=== PATIENT | male | born 1995 | race Caucasian/White ===

== ENCOUNTER 2017-01-05 19:18 | Inpatient (IN) | payer OTHER ==
[~2017-01-05] VITALS: Ht 182.9 cm; Wt 74.8 kg
[~2017-01-05 19:18] MED LIST: LAMICTAL200 MG PO
[2017-01-05] MEDS ORDERED: HIBICLENS118 ML TOP (19:35)
[2017-01-05] MEDS ORDERED: NORCO 5-325 TA1 EACH PO (19:35)
[2017-01-05] MEDS ORDERED: MORPHINE SULFAT10 M1 PO (19:36)
[2017-01-05] MEDS ORDERED: OXYCODONE HCL5 M1 PO (19:37)
[2017-01-05] MEDS ORDERED: ZOFRAN4 MG PO (19:38)
[2017-01-05] MEDS ORDERED: CEFTRIAXONE1 G2 IM (19:39)
[2017-01-05] MEDS ORDERED: BACTRIM DS TAB1 EACH PO (19:42)
--- NOTE | 2017-01-05 23:00 | NUR ---
PATIENT ADMITTED FROM ER VIA [facility], ACC. BY PICK UP. PATIENT AWAKE AND ALERT, DENIES COMPLAINTS EXCEPT FOR PAIN IN SCROTUM AND R THIGH.
--- NOTE | 2017-01-06 01:00 | NUR ---
NO CHANGES IN ASSESSMENT. PATIENT STATES IS HAVING PROBLEMS SLEEPING AND PAIN IS KEEPING HIM AWAKE.
--- NOTE | 2017-01-06 04:00 | NUR ---
PATIENT APPEARED TO BE SLEEPING; AWAKENED EASILY TO VOICE. PATIENT STATES PAIN IS STILL PRESENT BUT A LITTLE BETTER. PATIENT ASKS WHEN WILL THE DOCTOR KNOW IF HE HAS TO GO TO SURGERY; EXPLAINED TO PATIENT DOCTOR WOULD NOT MAKE THE DECISION UNTIL AFTER HE SEES PATIENT TODAY AND COMPLETES AN ASSESSMENT.
--- NOTE | 2017-01-06 05:15 | NUR ---
PATIENT TURNED. GAUZE AND HOT PACK APPLIED TO SCROTUM PER ORDERS; PATIENT COMPLAINS OF INCREASED PAIN WHEN MESSING WITH R THIGH OR SCROTUM; STATES 'BUTT DOESN'T FEEL TOO BAD'.
--- NOTE | 2017-01-06 09:03 | NUR ---
PT REMAINS NPO AT THIS TIME, UP TO THE SIDE OF THE BED FOR PARTICAL LINE CHANGE DUE TO PT C/O BEING WARM AND WET. PT HAD WARM WET PACK TO SCROUM AREA. PT IS ABLE TO MOVE ABOUT THE ROOM WITHOUT ISSUES. SOME BLEEDING NOTED FROM SCROUM AREA WHEN STANDING UP. PT COOPERATIVE WITH HOSPITAL ROUTINE. TWO [facility] OFFICERS REMAIN AT THE BEDSIDE.
--- NOTE | 2017-01-06 10:10 | NUR ---
PT TO DAY SURGERY AT THIS TIME VIA STREACHER WITH BOTH [facility] OFFICERS AND NURSING STAFF. PT BED COMPLETE CHANGED AT THIS TIME AND WIPED DOWN .
--- NOTE | 2017-01-06 10:13 | NUR ---
DR GALEANO INTO SEE PT. PT WILL GO TO THE OR TODAY. CONSENT SIGNED AND ON CHART, H & P ON CHART ALSO. PT GIVEN PRE-SURGICAL WASH AND FRESH GOWN PLACED.
--- NOTE | 2017-01-06 12:12 | NUR ---
PT REMAINS IN THE SURGERY AREA AT THIS TIME. ASSESSMENT AND VS WILL BE DONE WHEN PT RETURNS
--- NOTE | 2017-01-06 12:33 | NUR ---
[facility]
--- NOTE | 2017-01-06 13:25 | NUR ---
PT RECEIVED FROM PACU. BEDSIDE REPORT RECEIVED FROM FISHER DIVING. PT LAUGHING, INAPPROPRIATE. ORIENTED X4. PT TRANSFERED TO BED. DRESSINGS INTACT TO THIGH, SCROTUM AND BUTTOCK, SHADOWING NOTED TO THIGH DRESSING. PT WITH FAULKNER, DRAINING CLEAR YELLOW URINE. PT ON ROOM AIR. ENID AT BEDSIDE.
--- NOTE | 2017-01-06 14:43 | NUR ---
PT RESTING IN BED. EATING LUNCH, TOLERATING WELL, DENIES NAUSEA. IV FLUIDS INFUSING D5LR AT 85. IV ABX INFUSNG. PT DENIES NEEDS AT THIS TIME
--- NOTE | 2017-01-06 15:30 | NUR ---
PT RESTING IN BED. PT ON ROOM AIR. PT STATES HE IS BEGINING TO FEEL PAIN BUT IT IS TOLERABLE AT THIS TIME. IV FLUIDS INFUSING. FAULKNER IN PLACE DRAINING LIGHT YELLOW URINE. PT MORE ALERT/ORIENTED. PT DENIES NEEDS AT THIS TIME.
--- NOTE | 2017-01-06 15:55 | NUR ---
Checked on patient. Patient asked for apple juice went and got it.
[2017-01-06] MEDS ORDERED: MELATONIN3 MG PO (16:20)
[2017-01-06] MEDS ORDERED: HIBICLENS118 ML TOP (16:24)
[2017-01-06] MEDS ORDERED: TRIPLE ANTIBIO1 EACH TOP (16:25)
[2017-01-06] MEDS ORDERED: CLEOCIN HCL150 MG PO ×2 (16:27→16:28)
[2017-01-06] MEDS ORDERED: SINGULAIR10 MG PO (16:30)
[2017-01-06] MEDS ORDERED: VENTOLIN HFA18 GM INH (16:30)
[2017-01-06] MEDS ORDERED: ARNUITY ELLIP100 MCG INH (16:30)
[2017-01-06] MEDS ORDERED: PC TAR177 ML TOP (16:36)
--- NOTE | 2017-01-06 16:38 | NUR ---
MED REC COMPLETE--MAR
--- NOTE | 2017-01-06 16:53 | NUR ---
PT RESTIN IN BED. PT RATING PAIN 5/10, REQUESTING PAIN MEDICATION. PT LUNG SOUNDS CLEAR, ON ROOM AIR, O2 SATS 100%. PT MORE ALERT/ORIENTED, AT BASELINE. PT WITH FAULKNER IN PLACE, DRAINING CLEAR YELLOW URINE. PT BOWEL TONES ACTIVE, TOLERATING REGULAR DIET, DENIES NAUSEA. DRESSING INTACT, SEROSANGUINOUS DRAINAGE TO THIGH, MODERATE AMOUNT, SMALL AMOUTN SEROSANGINOUS DRAINAGE TO SCROTUM, BUTTOCK CDI. SCDS IN PLACE. PT DENIES NEEDS AT THIS TIME.
--- NOTE | 2017-01-06 18:19 | NUR ---
PT RECEIVED FROM PACU. PT ALERT/ORIENTED. PT ON ROOM AIR, O2 SATS 100%. PT TOLERTING REGULAR DIET, BOWEL TONES ACTIVE, DENIES NAUSEA. PT WITH DRESSINGS TO SCROTUM SMALL AMOUNT OF SEROSANGUINOUS DRAINAGE. DRESSING TO R THIGH, MODERATE AMOUNT OF SEROSANGUINOUS DRAINAGE. DRESSING TO R BUTTOCK, CDI. PT WITH FAULKNER IN PLACE, DRAINING QS. SCDS INPLACE. FAROOQ DEE.
--- NOTE | 2017-01-06 19:10 | NUR ---
BEDSIDE SHIFT REPORT RECEIVED FROM LINA MCMAHAN. PT IS FROM [facility], LUIS EDUARDO IN PLACE, 2 GUARDS IN ROOM. REQUESTED AN ADDITIONAL PILLOW, PROVIDED. DENIES FURTHER REQUESTS.
--- NOTE | 2017-01-06 20:15 | NUR ---
ASSESSMENT COMPLETED. PT IS ALERT/ORIENTED, REPORTS 6/10 PAIN IN SCROTUM, 0.5MG IV DILAUDID GIVEN. DENIES NAUSEA, TOLERATING REGULAR DIET WELL, BOWEL TONES ACTIVE. LUNGS CLEAR, RA. HR REGULAR. DRESSING TO SCROTUM C/D/I, ATHLETIC SUPPORT IN PLACE. DRESSING TO RIGHT BUTTOCK C/D/I. DRESSING TO RIGHT THIGH HAS MODERATE AMOUNT OF SEROSANGUINOUS DRAINAGE PRESENT. CMS INTACT. PT IS [facility] INMATE, HAS SHACKLE RESTRAINTS X4 EXTREMITIES, 2 GUARDS IN ROOM. FAULKNER IN PLACE, DRAINING FREELY, DILUTE URINE, UO QS. IV PATENT, INFUSING WNL. DENIES FURTHER REQUESTS, WILL CONTINUE TO MONITOR.
--- NOTE | 2017-01-06 20:55 | NUR ---
FLAGYL INFUSION STARTED AT THIS TIME, PT DENIES NEEDS.
--- NOTE | 2017-01-06 21:40 | NUR ---
PT CALLED TO REQUEST PAIN MEDICATION, 0.5MG IV DILAUDID GIVEN, STATES PAIN IS SCROTUM IS 5/10. DENIES FURTHER REQUESTS.
--- NOTE | 2017-01-06 22:20 | NUR ---
PT REQUESTED PAIN MEDICATION FOR 5/10 PAIN IN SCROTUM, 0.5MG IV DILAUDID GIVEN. DENIES FURTHER REQUESTS.
--- NOTE | 2017-01-06 23:20 | NUR ---
PT CALLED TO REQUEST PAIN MEDICATION, REPORTS 6/10 PAIN IN SCROTUM. 0.5MG IV DILAUDID AND 650MG PO TYLENOL GIVEN. PT REPORTS HAVING TROUBLE FALLING ASLEEP, EYE MASK AND EAR PLUGS PROVIDED. PT DENIES FURTHER REQUESTS AT THIS TIME.
--- NOTE | 2017-01-06 23:57 | NUR ---
RECEIVED CALL FROM [facility] NURSE EARLIER IN EVENING. RETURNED CALL AT THIS TIME, REPORT GIVEN TO LINA PINEDA. UPDATED HER ON CARE PLAN AND PT CONDITION.
--- NOTE | 2017-01-07 00:35 | NUR ---
CHECKED IN ON PT WHO APPEARED TO BE SLEEPING WITH EYE MASK AND EAR PLUGS IN PLACE. EMPTIED CATHETER BAG, PT WOKE DURING THIS TIME. REPORTS 6/10 PAIN IN SCROTUM, 0.5MG IV DILAUDID GIVEN. DENIES FURTHER REQUESTS.
--- NOTE | 2017-01-07 01:37 | NUR ---
PT CALLED BECAUSE IV PUMP WAS BEEPING. PT REPORTS THAT PAIN IS UNCHANGED, REMAINS AT 6/10, 0.5MG IV DILAUDID GIVEN. DENIES FURTHER REQUESTS.
--- NOTE | 2017-01-07 03:05 | NUR ---
ASSESSMENT COMPLETED. PT REPORTS THAT PAIN IS UNCHANGED, REMAINS 6/10, 0.5MG IV DILAUDID GIVEN. DENIES NAUSEA. LUNGS CLEAR, RA. HR REGULAR. BOWEL TONES ACTIVE. DRESSINGS REMAIN UNCHANGED, NO DRAINAGE NOTED TO SCROTUM AND BUTTOCK DRESSING, SMALL AMOUNT OF DRAINAGE PRESENT ON THIGH DRESSING THOUGH IT IS UNCHANGED FROM EARLIER. SCD'S IN PLACE. SHACKLES X4 EXTREMITIES AND 2 GUARDS IN ROOM. FAULKNER IN PLACE DRAINING FREELY. IV ZOSYN INFUSION COMPLETED AND NEW IVF STARTED. DENIES FURTHER REQUESTS, WILL CONTINUE TO MONITOR.
--- NOTE | 2017-01-07 06:01 | NUR ---
CALLED DR. GALEANO TO UPDATE HIM ON PT CONDITION AND LET HIM KNOW THAT PT CONSISTENTLY RATES PAIN IN SCROTUM 5-6/10 AND HAS BEEN REQUESTING PRN IV DILAUDID ABOUT HOURLY. NEW ORDERS: PERCOCET 7.5/325MG 1-2TABS PO Q4 PRN PAIN. ALSO LET DR. GALEANO KNOW THAT PT HAS BEEN HAVING TROUBLE SLEEPING AND HAS MELATONIN IN HIS HOME MEDS. NEW ORDERS: MELATONIN 3MG PO HS. DR. GALEANO ALSO WOULD LIKE PT'S FAULKNER TO BE D/C'D FOR VOIDING TRIAL.
--- NOTE | 2017-01-07 06:05 | NUR ---
PT DID NOT SLEEP MUCH THROUGHOUT SHIFT. PAIN STAYED AT 5-6/10 THROUGHOUT NIGHT, PRIMARILY SCROTUM PAIN. PRN DILAUDID GIVEN ALMOST HOURLY, NEW PO PAIN MED ORDERS OBTAINED THIS MORNING. NO NAUSEA, TOLERATING REGULAR DIET WELL. LUNGS CLEAR, RA. HR REGULAR. DRESSING TO RIGHT BUTTOCK C/D/I. DRAIN AND DRESSING TO RIGHT THIGH HAS OLD SEROSANGUINOUS DRAINAGE PRESENT, UNCHANGED THROUGHOUT SHIFT. DRAIN AND DRESSING TO SCROTUM WITH JOCK SUPPORT IN PLACE, DRESSING HAS REMAINED C/D/I. FAULKNER THROUGHOUT NIGHT, D/C'D THIS AM FOR VOIDING TRIAL. IV PATENT, D5LR @85ML/HR, IV ABX: ZOSYN AND FLAGYL. 1-PA. FROM [facility], RESTRAINTS X4 EXTREMITIES, 2 GUARDS IN ROOM THROUGHOUT NIGHT. AFEBRILE, VSS.
--- NOTE | 2017-01-07 06:20 | NUR ---
PT REPORTS 6/10 PAIN IN SCROTUM, 2 TABS PERCOCET GIVEN. FLAGYL INFUSION COMPLETED, ZOSYN INFUSION STARTED. SNACK PROVIDED WITH PO PAIN MEDS. DISCUSSED D/C OF LUCIE WITH PT, STATES UNDERSTANDING, WILL RETURN IN A FEW MINUTES AFTER PT FINISHES EATING.
--- NOTE | 2017-01-07 07:33 | NUR ---
BEDSIDE REPORT RECEIVED FROM FULL TIME RN USING 5 P'S. PT REPORTS PAIN IMPROVING AFTER PERCOCET. RATES 3/10. GIVEN FRESH WATER PER REQUEST. DENIES ADDITIONAL NEEDS. PT UP TO VOID 225 ML. IV ABX INFUSING WITHOUT DIFFICULTY. CO X [address] SHACK[address] PL[address] PER [facility] PROTOCOL.
--- NOTE | 2017-01-07 12:30 | NUR ---
PT GIVEN 2 PERCOCET 7.5 FOR INCREASING 5/10 PAIN. UP TO BR TO ATTEMPT BM. UNABLE TO HAVE BM. REQUESTS STOOL SOFTENER. MD AWARE. PT DENIES ADDITIONAL NEEDS AT THIS TIME. 2 GUARDS AT BEDSIDE. SHACKLES IN PLACE PER [facility] PROTOCOL. CALL LIGHT IN REACH.
[2017-01-07] MEDS ORDERED: MAPAP325 MG PO (16:31)
[2017-01-07] MEDS ORDERED: BACTRIM DS TAB1 EACH PO (16:31)
[2017-01-07] MEDS ORDERED: DOC-Q-LACE100 MG PO (16:46)
[2017-01-07] MEDS ORDERED: OXYCODONE HCL5 MG PO (16:47)
--- NOTE | 2017-01-07 17:39 | NUR ---
PT DISCHARGING. REPORT CALLED TO LINA CARRERO AT [facility]. DRESSING TO R THIGH CHANGED WITH PLAIN GAUZE PER DR. GALEANO. SL REMOVED. WNL. ASSISTED TO GET DRESSED BY GUARDS.
--- NOTE | 2017-01-30 10:36 | OR ---
[facility] [address] [place], [place] [address] Signed DATE OF PROCEDURE: 01/06/17 PREOPERATIVE DIAGNOSES Superior central scrotal abscess with systemic sepsis, status post recent incision and drainage ([facility]). History of right anterior thigh abscess status post drainage four days ago. History of right gluteal abscess with drainage 3 days ago. POSTOPERATIVE DIAGNOSES Superior central scrotal abscess with retained purulent abscess inferiorly at junction of penis and scrotum. Purulence of urethral meatus. No evidence of urethral injury on cystoscopy. Persistence of subcutaneous abscess of right anterior thigh. Well-drained healing abscess of the right gluteal area. PROCEDURE Exam under anesthesia. Incision and drainage of scrotal abscess, placement of yellow Vesseloop. Removal of Min catheter and diagnostic cystoscopy with replacement of Min catheter. Incision, drainage and debridement of right anterior thigh with placement of yellow Vesseloop x2. Exam and probing of right gluteal abscess. Cystoscopy with replacement of Min catheter. ANESTHESIA: Local with monitored anesthesia care, Darlyn Bar CRNA. INDICATIONS This 21-year-old white man is a prisoner at [facility] and presented to the emergency room upon referral from [facility] with systemic sepsis including hypotension, tachycardia and fever as high as 102. He then begun incision and drainage of a scrotal abscess in the central superior aspect yesterday at the shelter with placement of a wick. He had a fair amount of edema of the penis and the base of the penis. No evidence of Woodrow's gangrene. The patient had undergone incision and drainage of a right thigh abscess approximately 3 days prior to that and a right gluteal abscess 2 days ago. Those areas appear to be reasonably well healing. The patient was fluid resuscitated, given intravenous antibiotics and monitored closely. He continues to have purulent drainage from the superior central scrotum at the base of the penis. Of special note, a Mni catheter was then placed at this time and over a week ago, the patient had urinary retention requiring Min catheter placement, but did subsequently Electronically Signed By: ANNABELLE GALEANO MD 01/30/17 1036 PATIENT NAME: EDDIE WOMACK OPERATIVE REPORT DATE OF : [birth year] PHYSICIAN: ANNABELLE GALEANO MD REPORT #: [id number] REPORT IS CONFIDENTIAL AND NOT TO BE RELEASED WITHOUT AUTHORIZATION [facility] [address] [place], [place] [address] Signed explant the catheter without taking down the balloon. The patient is admitted to the operating room at this time to undergo additional drainage of the scrotal abscess and evaluation of the other abscess sites including the right thigh and right gluteal area. He understands the risks of bleeding, infection, need for additional procedures and wishes to proceed. FINDINGS The scrotal abscess inferiorly was about the size of a quarter, maybe a bit larger. Although there is drainage ongoing, loculations needed to be broken down and a counter-incision placed to allow for a yellow Vesseloop to be placed. There was an unnatural purulent exudate from the urethral meatus and given his prior Min catheter issue, concern was maintained for possible urethral disruption from the past. On that basis, the Min catheter was explanted and cystoscopy performed. Cystoscopy confirmed a normal urethra without sign of injury to it. Prostatic urethra and bladder were normal as well. In regard to right anterior thigh lesion, there was still some purulent and somewhat necrotic debris within that abscess space and a counter-incision was made superiorly and inferiorly to the initial drainage site, allowing for yellow Vesseloop placement and drainage and irrigation. The gluteal lesion was probed, but appeared to be well-drained. DESCRIPTION OF PROCEDURE The patient was brought to the operating room and given very heavy sedation with intravenous agents by the supervisor cell efficiency. The patient has already been on Tygacillin and Flagyl antibiotic. The genitalia dressing was removed and a wick that was in place of the drainage site was removed and egress of copious amounts of purulent material noted. This was gram-stained and cultured. The genitalia were more fully prepared with the Min catheter already placed and left in situ. He did have tumescence of the penis and edema in the area as well. The anterior thigh area was prepared with a chlorhexidine solution and draped separately, as were the genitalia. Interrogation of the previous incision site at the base of the penis and the superior aspect of the scrotum was undertaken with a hemostat, showing egress of copious amounts of purulent material. A mass-like area inferior to it about the size of a quarter was interrogated and loculations broken down, allowing for more egress of material. Probing superiorly did not show much in the way of purulent material. A counter-incision was made inferiorly and a yellow Vesseloop placed. Irrigation was undertaken in the abscess cavity space. There was noted that a fair amount of purulent material at the urethral meatus. Mindful of this prior self-extubation of the Min catheter with the balloon Electronically Signed By: ANNABELLE GALEANO MD 01/30/17 1036 PATIENT NAME: EDDIE WOMACK OPERATIVE REPORT DATE OF : [birth year] PHYSICIAN: ANNABELLE GALEANO MD REPORT #: [id number] REPORT IS CONFIDENTIAL AND NOT TO BE RELEASED WITHOUT AUTHORIZATION [facility] [address] [facility] [place] [place] [address] Signed inflated, concern was maintained for possible urethral disruption, possibly a candidate for this purulent continuity. On that basis, cystoscopy was deemed appropriate. Min catheter was carefully withdrawn after deflating the balloon and using irrigation in the usual technique, after meatal sterile preparation, the cystoscope was advanced into the urethra. Careful inspecti on throughout showed no evidence of urethral disruption, including that of the prostatic urethra. The bladder appeared normal. The scope was withdrawn and a Min catheter was once again placed by sterile technique and the balloon insufflated. Reinspection of the drainage site showed there to be good drainage and a fluff gauze was applied later. Attention was turned to the right anterior thigh area. This previous incision and drainage site was probed with a hemostat and found to have some residual purulence and some necrotic fat. Counter-incisions were made superiorly and inferiorly and yellow Vesseloops placed and tied. Irrigation was undertaken. Gauze dressing was applied to this area as well. Both legs were elevated with careful support, allowing for visualization of the right gluteal area that had been incised and drained. This was probed with a hemostat after preparation with the chlorhexidine and showed it to be healing well. Plain gauze was applied. An athletic supporter was applied to better secure the fluff gauze of the scrotum. He was ultimately allowed to emerge from heavy sedation, taken to the recovery room in good condition. Blood loss was less than 10 cc. Sponge, needle and instrument counts were reported as correct x3. MD MECHELLE Lebron/Estefany /[id number] cc: LUIZ Wilcox Electronically Signed By: ANNABELLE GALEANO MD 01/30/17 1036 PATIENT NAME: EDDIE WOMACK OPERATIVE REPORT DATE OF : [birth year] PHYSICIAN: ANNABELLE GALEANO MD REPORT #: [id number] REPORT IS CONFIDENTIAL AND NOT TO BE RELEASED WITHOUT AUTHORIZATION
--- NOTE | 2017-01-30 10:36 | DS ---
[facility] [address], [place] [address] Signed REASON FOR ADMISSION This 21-year-old white man who presented from [facility] and was sent to the emergency room, evaluated by Dr. Monroy, for findings of sepsis including tachycardia, relative hypotension, and fever. The patient has undergone abscess drainage x3 in the past 4 days. His first was in the right anterior thigh and another in the right posterior gluteal area, and earlier today, on the day of admission, at the base of his penis on the superior aspect of the scrotum. I believe these w ere drained by Dr. Mendez, but I am not entirely sure. The patient had increasing swelling in the preceding 24 hours which had been monitored, I believe, by Ms. Morin at the snf, but increasing swelling and pain prompted incision and drainage which did deliver purulent material. During the course of the day, his symptoms worsened including fever, relative hypotension, diaphoresis, and findings consistent with sepsis. He was evaluated in the emergency room by Dr. Monroy, and was resuscitated with intra venous fluids and the administration of Zosyn antibiotic and consultation undertaken by me. He is noted to have a Min catheter in place. It is notable he had an episode of urinary retention over a month ago ultimately undergoing evaluation by urologist (Dr. Conti) including a cystoscopy that was performed showing no sign of obstructive pathology. This was not known to me at the time of admission, however. Given the patient's sepsis and findings of persistent purulence at the base of the penis and superior aspect of the central scrotum, he is admitted for further evaluation and care. PHYSICAL EXAM GENERAL: Showed a thin white man, who looked erythematous and toxic. He had diaphoresis. VITAL SIGNS: His temperature was as high as 102.5, blood pressure as low as 85 systolic, pulse as high as 143. HEAD, NECK, AND CHEST EXAM: Normal. ABDOMEN: Normal as well. : Swelling around the penis and superior scrotum is noted. There is no evidence of Fornier's gangrene proper, however. There is egress of purulent fluid from the incision site and a small wick was noted too. The right anterior thigh had some gauze packing. No sign of extensive erythema, and the right gluteal wound had an occlusive dressing. LAB STUDIES Initially showed a white count of only 9.8, hematoc rit 35.1, platelets 170,000. Chem Electronically Signed By: ANNABELLE GALEANO MD 01/30/17 1036 PATIENT NAME: EDDIE WOMACK DISCHARGE SUMMARY DATE OF : [birth year] PHYSICIAN: ANNABELLE GALEANO MD REPORT #: [id number] REPORT IS CONFIDENTIAL AND NOT TO BE RELEASED WITHOUT AUTHORIZATION [facility] [address], [place] [address] Signed profile showed potassium of 3.4, bicarbonate low at 18, creatinine 0.97, glucose 101. A lactate level though desirable was not able to be obtained at the time of evaluation due to a lab problem. HOSPITAL COURSE My evaluation in the emergency room showed him to be apparently less toxic than he was initially, and he seemed dynamically stable. Given his clinical findings of sepsis, he was taken for observation to the intensive care unit with broad spectrum antibiotic of Zosyn and Flagyl administered. Wound care to the scrotal area included moist warm washcloths and monitoring. Within the first 6 to 12 hours of admission, he was considered improved though there still was a fair amount of drainage from the operative site, and on that basis, I recommended taking him to the operating room where exam under anesthesia could be more prudently undertaken. This was accomplished which showed a fair amount of undrained purulence in the level of the scrotum. A yellow vessel loop was placed through a counter incision after evacuation and irrigation. He was noted to have purulent discharge at the urethral meatus with Min catheter in place, and given his prior history of self extubation of a Min catheter a month ago, I was concerned that there may be continuity of the abscess cavity to the urethra itself. On that basis, cystoscopy was also performed which showed no sign of the urethral disruption or other problem. The Min catheter was replaced at that time. The right anterior thigh wound was examined further, and there did appear some undermining. On that basis, 2 yellow vessel loops are passed as drains also. The gluteal area was probed, there were no signs of undrained purulence or other problem. He was taken to a regular nursing floor postoperatively as he was hemodynamically stable. He was maintained on Zosyn antibiotics as well as parenteral pain medication. Gram-stains did not show organisms but did show white cells and red cells. By the time of discharge back to the [facility], he was tolerating regular diet. Oral analgesics are effective for his pain and wounds are much improved in appearance. It is anticipated that he will have a shower on a daily basis and allow water to reach the wounds that have been drained. 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 I would recommend removal of the yellow vessel loops in the next 2 to 3 weeks, and I anticipate to see him back in the sn[facility] clinic in that timeframe if possible. DISCHARGE MEDICATIONS Electronically Signed By: ANNABELLE GALEANO MD 01/30/17 1036 PATIENT NAME: EDDIE WOMACK DISCHARGE SUMMARY DATE OF : [birth year] PHYSICIAN: ANNABELLE GALEANO MD REPORT #: [id number] REPORT IS CONFIDENTIAL AND NOT TO BE RELEASED WITHOUT AUTHORIZATION [facility] [address], [place] [address] Signed Will include, Tylenol 650 mg po/q 6 hours p.r.n. pain, #60. Bactrim DS 1 tab p.o. b.i.d., #10 days. Resumption of medication including lamotrigine 200 mg p.o. at bedtime. Oxycodone 5 to 10 mg po/q 8 hours as needed for pain. Zofran 4 mg b.i.d. as needed for nausea. Melatonin 3 mg tablet 3 mg p.o. at bedtime. Chlorhexidine gluconate, Hibiclens solution apply topically daily with shower. Fluticasone fumarate 1 inhaled dose q day, rinsing mouth after use. Montelukast sodium, Singulair 10 mg tablets po/q day. Albuterol nebulizer 1 to 2 times a day 4 puffs as needed. [place] tar shampoo 1 application topically 3 times a week. DISCHARGE DIAGNOSES Soft tissue abscess of the right thigh, right gluteus, and right upper central scrotum beneath the base of penis. Sepsis related to scrotal abscess. Exploration of scrotal abscess with drainage as well as exploration of right anterior thigh wound with application of seton and examination of right gluteal abscess. Insomnia. Reactive airways disease. FOLLOWUP PLANS I will see him back in the sn[facility] clinic within the next 2 to 3 weeks for removal of drains. SPECIAL INSTRUCTIONS He is to shower daily and allow water to enter to the wounds in question. Special note to avoid any food handling capacity for others. MD MECHELLE Lebron/Estefany /[id number] cc: Dr. Mendez Electronically Signed By: ANNABELLE GALEANO MD 01/30/17 1036 PATIENT NAME: EDDIE WOMACK DISCHARGE SUMMARY DATE OF : [birth year] PHYSICIAN: ANNABELLE GALEANO MD REPORT #: [id number] REPORT IS CONFIDENTIAL AND NOT TO BE RELEASED WITHOUT AUTHORIZATION
== END 2017-01-07 17:55 | disposition home or self-care (01) | DRG 872 ==
LOC: ED 19:18 → CCU 22:04 → MS 22:04
PROVIDERS: ADMIT Surgery
PROC: 0TJB8ZZ Inspection of Bladder, Via Natural or Artificial Opening Endoscopic (ICD-10-PCS; 2017-01-06)
PROC: 0H9AXZZ Drainage of Inguinal Skin, External Approach (ICD-10-PCS; 2017-01-06)
PROC: 3E10X8Z Irrigation of Skin and Mucous Membranes using Irrigating Substance (ICD-10-PCS; 2017-01-06)
PROC: 0VB5XZZ Excision of Scrotum, External Approach (ICD-10-PCS; principal; 2017-01-06 11:00)
DX: A41.9 Sepsis, unspecified organism (principal); N49.2 Inflammatory disorders of scrotum
CPT/HCPCS: 00920; 36415; 51702; 71010; 80053; 81001; 83605; 85025; 87040; 87070; 87075; 87077; 87186; 87205; 96365; 96375; 99285; J1100; J1170; J1885; J2175; J2250; J2405; J2543; J2704; J3010; J3370; J7120